=== PATIENT | male | born 1995 | race Caucasian/White ===

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

== ENCOUNTER 2018-06-08 03:20 | Emergency (ER) | payer BC ==
[~2018-06-08] VITALS: Ht 167.6 cm; Wt 61.4 kg
[~2018-06-08 03:20] MED LIST: NORCO 325 MG-51 TAB PO
[2018-06-08 03:24] VITALS: BP 159/89; TEMP 97.7
[2018-06-08] MEDS ORDERED: EPIPEN 2-PAK1 MG/ML IM (04:45)
[2018-06-08] MEDS ORDERED: PREDNISONE20 MG PO (04:45)
[2018-06-08] MEDS ORDERED: PEPCID 20MG TAB20 MG PO (04:45)
[2018-06-08] MEDS ORDERED: ATARAX 25MG25 MG/TAB PO (04:45)
[2018-06-08 05:49] VITALS: PULSE 89
== END 2018-06-08 05:50 | disposition home or self-care (01) ==
LOC: COL.ER 03:20
DX: L50.9 Urticaria, unspecified (principal)
CPT/HCPCS: J7512